=== PATIENT | male | born 1990 | race Caucasian/White ===

== ENCOUNTER 2020-08-05 19:58 | Emergency (ER) | payer OTHER ==
[~2020-08-05] VITALS: Ht 180.3 cm; Wt 86.2 kg
[2020-08-05 21:16] VITALS: BP 139/92
--- NOTE | 2020-08-06 14:00 | EKG ---
[place] [address] ELECTROCARDIOGRAM REPORT Name: NIKUNJ FONTANEZ Room: [facility]#: [id number] Admission: 08/05/20 Attend Phys: Discharge: 08/05/20 Date of : 89 Date of Service: 08/05/202002 Report #: [id number] THIS REPORT FOR: //name// [facility] ED Test Date: 2020-08-05 Test Time: 20:03:35 Pat Name: NIKUNJ FONTANEZ Department: Room: Gender: Transportation Aide: [place] : 1990 Requested By: Abe Orr Order Number: [id number] MD: Kwabena Killian Measurements Intervals [place] Rate: 77 P: 57 LA: 164 QRS: 80 QRSD: 102 T: 55 QT: 376 QTc: 426 Interpretive Statements Sinus rhythm No previous ECG available for comparison Electronically Signed On 08-06-2020 14:00:22 [employer] by Kwabena Killian [email or web address] <ELECTRONICALLY SIGNED> By: Darshan Killian MD, [facility] 08/06/20 [facility] 02 02 Darshan Killian MD, [facility] /EPI
== END 2020-08-05 21:17 | disposition home or self-care (01) ==
LOC: M.ERS 19:58
DX: R07.89 Other chest pain (principal)